=== PATIENT | male | born 1965 | race Caucasian/White ===

== ENCOUNTER 2019-01-06 11:08 | Emergency (ER) | payer OTHER ==
[2019-01-06] MEDS ORDERED: Sodium Chloride 0.9% 10 ML Syringe FLUSH PRN (11:12)
--- NOTE | 2019-01-06 11:16 | EDM.PDOC ---
ED HPI GENERAL MEDICAL PROBLEM - General Chief Complaint: Head Injury Stated Complaint: INJURY TO FOREHEAD Time Seen by Provider: 01/06/19 11:13 Source of Information: Reports: Patient, Other - History of Present Illness INITIAL COMMENTS - FREE TEXT/NARRATIVE: This is a 53yo M being brought in for a head injury secondary to a ratchet strap metal piece that hit him on the forehead. He is bleeding and witnesses have reported that he is repeatedly asking the same questions. Patient reported to have lost consciousness when the ratchet hit his head and then when he awoke he was confused and repeatedly asked what happened even after describing the incident. He had a seizure on the ambulance on the way to the hospital and fell unconscious after the seizure. He had 2 more seizures at the hospital and has not been responsive. Onset: Sudden Location: Reports: Head, Face Severity: Severe Improves with: Reports: None Worsens with: Reports: None Associated Symptoms: Reports: Confusion, Seizure, Syncope ED ROS GENERAL - Review of Systems Review Of Systems: ROS reveals no pertinent complaints other than HPI. ED EXAM, HEAD INJURY - Physical Exam Exam: See Below Exam Limited By: Other (unconscious) General Appearance: Obtunded Head: Active Bleeding, Facial Ecchymosis, Facial Lacerations, Facial Swelling Nose: Normal Inspection Respiratory: Crackles, Rales Cardiovascular: Tachycardia GI/Abdominal Exam: Abnormal Bowel Sounds Extremities: Normal Inspection Skin: Other (open wound of forehead) - [place] Coma Score Best Eye Response ([place]): (1) No Response Best Verbal Response ([place]): (2) Incomprehsible Sounds Best Motor Response ([place]): (1) No Motor Response Course - Orders/Labs/Meds Meds: Medications Discontinued Medications Generic Name Dose Route Start Last Admin Trade Name Freq PRN Reason Stop Dose Admin Diazepam 10 mg 01/06/19 11:53 01/06/19 11:53 Valium IVPUSH 10 mg Q2H PRN Administration Agitation Mannitol Confirm 01/06/19 13:05 01/06/19 12:27 Mannitol 20% Administered 01/06/19 13:06 500 mls/hr Dose Administration 500 mls @ as directed .ROUTE .STK-MED ONE Mannitol Confirm 01/06/19 13:07 01/06/19 12:59 Mannitol 20% Administered 01/06/19 13:08 500 mls/hr Dose Administration 500 mls @ as directed .ROUTE .STK-MED ONE Labetalol HCl 40 mg 01/06/19 12:29 01/06/19 12:29 Normodyne IVPUSH 01/06/19 12:30 40 mg ONETIME ONE Administration Protocol Levetiracetam Confirm 01/06/19 12:28 01/06/19 12:24 Keppra Administered 01/06/19 12:29 500 mg Dose Administration 500 mg .ROUTE .STK-MED ONE Sodium Chloride 10 ml 01/06/19 11:12 Saline Flush FLUSH ASDIRECTED PRN Keep Vein Open Succinylcholine Chloride 170 mg 01/06/19 15:00 01/06/19 12:02 Quelicin IV 170 mg ASDIRECTED PEREZ Administration Departure - Departure Time of Disposition: 13:10 Disposition: DC/Tfer to Acute Hospital 02 Condition: Critical Clinical Impression: Concussion injury of brain, Subdural hemorrhage, Hematoma, Fracture of orbit, Fracture of skull - Discharge Information Instructions: Head Injury, Adult Referrals: PCP,None [Primary Care Provider] - Forms: ED Department Discharge - Problem List & Annotations (1) Concussion injury of brain SNOMED Code(s): 186646614 Code(s): S06.0X9A - CONCUSSION W LOSS OF CONSCIOUSNESS OF UNSP DURATION, INIT Status: Acute Priority: High (2) Fracture of orbit SNOMED Code(s): 82297035 Code(s): S02.80XA - FX OTH SKULL AND FACIAL BONES, UNSPECIFIED SIDE, INIT Status: Acute Priority: High (3) Fracture of skull SNOMED Code(s): 69484383 Code(s): S02.91XA - UNSP FRACTURE OF SKULL, INIT ENCNTR FOR CLOSED FRACTURE Status: Acute Priority: High (4) Hematoma SNOMED Code(s): 223214329 Code(s): T14.8XXA - OTHER INJURY OF UNSPECIFIED BODY REGION, INITIAL ENCOUNTER Status: Acute Priority: High (5) Subdural hemorrhage SNOMED Code(s): 76509117 Code(s): I62.00 - NONTRAUMATIC SUBDURAL HEMORRHAGE, UNSPECIFIED Status: Acute Priority: High - Problem List Review Problem List Initiated/Reviewed/Updated: Yes - Assessment/Plan Plan: Patient unable to be intubated. [facility] team also tried with both providers unable to access the trachea. LMA placed. Patient to be transferred to [place] via [facility] for Neurosurgery component technician. Patient was diverted mid flight due to Neurosurgery in surgery to [facility].
[2019-01-06] MEDS ORDERED: levETIRAcetam 500 MG/5 ML SDV ONE (12:28)
[2019-01-06] MEDS ORDERED: Labetalol 100 MG/20 ML MDV IVPUSH ONE (12:29)
[2019-01-06] MEDS ORDERED: Mannitol 500 ML ONE ×2 (13:05→13:07)
--- NOTE | 2019-01-06 13:39 | CT ---
DATE OF SERVICE: 01/06/19 CLINICAL DATA: Head injury. UNENHANCED BRAIN CT: Multislice acquisition through the brain without IV contrast was performed. No priors. There is extensive soft tissue swelling anterior to the frontal bones with soft tissue emphysema consistent with the history of trauma and laceration. There is preseptal soft tissue swelling on the left also. There is a minimally displaced oblique fracture through the left frontal bone that extends through the frontal sinus and left orbital roof, as well as the lamina papyracea on the left. There is a comminuted, minimally displaced fracture involving the right frontal bone that extends through the anterior and posterior torres of the right frontal sinus. It does extend through the superior orbital rim and orbital roof on the right. It also extends through the lamina papyracea on the right. There is a mildly displaced fracture involving the anterior wall of the right maxillary sinus also. There is hyperdense fluid in the right maxillary sinus consistent with hemorrhage/hematoma. There is also fluid dense material in the ethmoid and left sphenoid sinuses as well as the right frontal sinus. There is extra-axial blood density material adjacent to the left frontal lobe. It measures approximately 3 mm in depth. It is consistent with a small subdural hematoma. No associated mass effect. There is also extra-axial hyperdense material in the right posterior cranial fossa and adjacent to the tentorium consistent with subdural hematoma. No significant mass effect. No masses. There is a cavum septum pellucidum and a cavum vergae. These are normal variants. No other significant findings. IMPRESSION: Multiple abnormalities as discussed above. The patient's physician was notified of the findings by telephone and by virtual radiologic preliminary radiology report. [id number] [facility]
--- NOTE | 2019-01-06 13:50 | CT ---
DATE OF SERVICE: 01/06/19 CLINICAL DATA: Head injury FACIAL CT: Multislice axial acquisition was performed. Axial images and coronal and sagittal reformations are reviewed. Again noted are the fractures through the frontal bones on the right and left described in the unenhanced brain CT. The fractures extend through the frontal sinuses through the anterior and posterior torres of the frontal sinuses and through the roofs of the orbit as well as through the lamina papyracea on the right. There is hemorrhage/hematoma within the frontal, ethmoid, right maxillary, and sphenoid sinuses. There is also a minimally displaced fracture through the anterior wall of the right maxillary sinus. There is soft tissue swelling and soft tissue emphysema anterior to the frontal bone. There is preseptal soft tissue swelling on the left. No other fractures. IMPRESSION: Multiple fractures. The patient's physician was notified of the findings by telephone and by virtual radiologic preliminary radiology report. [id number] [facility]
[2019-01-06] MEDS ORDERED: Succinylcholine 200 MG/10 ML MDV IV SCH (15:00)
== END 2019-01-06 13:02 ==
LOC: LB.ED 11:08
DX: S06.5X9A Traumatic subdural hemorrhage with loss of consciousness of unspecified duration, initial encounter (principal); S02.19XA Other fracture of base of skull, initial encounter for closed fracture; R40.2430 Glasgow coma scale score 3-8, unspecified time; W22.8XXA Striking against or struck by other objects, initial encounter
CPT/HCPCS: 70450; 70480; 96374; 96375; 99284-25; 99291-25; 99292; A0425; A0429; J0330; J1953; J3360; J3490